=== PATIENT | female | born 1955 | race Caucasian/White ===

== ENCOUNTER 2024-09-02 15:31 | Emergency (ER) | payer MEDICAID ==
[~2024-09-02] VITALS: Ht 160 cm; Wt 73.0 kg
[2024-09-02 15:32] VITALS: O2SAT 98
[2024-09-02] MEDS ORDERED: LIDO-53 TP (16:36)
[2024-09-02] MEDS ORDERED: ACET-2708 MT (16:36)
[2024-09-02 16:52] VITALS: BP 146/90; PULSE 87; RESP 18; TEMP 36.7; O2SAT 98
== END 2024-09-02 16:55 | disposition home or self-care (01) ==
LOC: ER 15:31
DX: M25.511 Pain in right shoulder (principal); E11.9 Type 2 diabetes mellitus without complications; I10 Essential (primary) hypertension
CPT/HCPCS: 73010; 99283; A4565